=== PATIENT | female | born 1970 | race Caucasian/White ===

== ENCOUNTER 2017-01-26 10:49 | Emergency (ER) | payer OTHER ==
[2017-01-26] MEDS ORDERED: MAALOX/LIDO/HYOSC GI COCKTAIL 55 ML BOTTLE PO ONE (11:25)
[2017-01-26 11:26] VITALS: BP 157/92; PULSE 83; RESP 18; TEMP 98.6; O2SAT 96
[2017-01-26] MEDS ORDERED: MAALOX/HYOSC GI COCKTAIL 45 ML BOTTLE PO ONE (11:26)
--- NOTE | 2017-01-26 11:32 | UCPHY ---
H & P Patient Type: New Chief Complaint Nursing Narrative: mid abd pain started 1 week ago, now with constant abd tightness with radiation inbetween shoulder blades. denies n/v/d, denies urinary complaints, reports last bowel movement yesterday and normal. thought was indigestion but now constant pain Time Seen by Provider: 01/26/17 11:12 HPI/ROS: This patient reports gradual onset of epigastric pain 1 week ago that is described as crampy and achy in nature. It has been fairly constant since its onset and worsened when she drink wine. She had partial improvement from over- the-counter antacid notes no other exacerbating factors. She reports that the pain also seems to cause some discomfort between her shoulder blades. She does not recall ever having had this pain before. Peak intensity 7/10. She has no other associated symptoms. ROS: No fevers or chills. HEENT: No complaints pulmonary: No dyspnea. No coughing. No pleuritic pain. Cardiovascular: No leg swelling. GI: No nausea vomiting. She maintains a good appetite. She has noticed any significant reflux symptoms. : No symptoms. 10 point ROS is otherwise negative. Source: Patient Exam Limitations: No limitations - Medical/Surgical History PMH: Otherwise healthy except for uterine fibroids Past surgical history of tubal ligation Other PMH: uterine fibroids, BTL - Family History Significant Family History: No pertinent family hx - Social History Smoking Status: Never smoked Alcohol Use: Occasionally Drug Use: None Additional Social History: She is visiting from [place] and flew here within the past 24 hours - Physical Exam Exam: General Appearance: Alert, no distress. Eyes: Pupils equal and round no pallor or injection. ENT, Mouth: Mucous membranes moist. Respiratory: There are no retractions, lungs are clear to auscultation. Cardiovascular: Regular rate and rhythm. Gastrointestinal: Hyperactive bowel sounds, soft, mild right lower quadrant tenderness and mild epigastric tenderness. No guarding or rebound. Back: She has mild thoracic back tenderness that seems to be muscular. No midline tenderness. No CVA tenderness Neurological: Alert with no focal deficits. Skin: Warm and dry, no rashes. Musculoskeletal: Neck is supple nontender. Extremities are symmetrical, full range of motion. Psychiatric: Mood and affect are normal DIFFERENTIAL DIAGNOSIS: After history and physical exam differential diagnosis was considered for constipation, food intolerance, IBS, pancreatitis, coronary syndrome, hepatitis, appendicitis, UTI Constitutional: Initial Vital Signs Temperature (C) 37.0 C 01/26/17 11:04 Heart Rate 83 01/26/17 11:04 Respiratory Rate 18 01/26/17 11:04 Blood Pressure 157/92 H 01/26/17 11:04 O2 Sat (%) 96 01/26/17 11:04 O2 Delivery Mode Room Air Allergies/Adverse Reactions: No Known Allergies Allergy (Unverified 01/26/17 11:03) Home Medications: Medication Instructions Recorded Pantoprazole Sodium [Protonix 40mg 40 mg PO DAILY #20 tab 01/26/17 (*)] Medical Decision Making - Diagnostics EKG Interpretation: 12 lead EKG performed at 11:35 a.m. reveals sinus rhythm at 78 Intervals: Normal throughout [place]: Normal throughout ST segments: Normal throughout Overall assessment: Normal EKG ED Course/Re-evaluation: GI cocktail with improvement from 7/10 to 2/10 discomfort. Review of labs reveals normal CBC, comp metabolic panel and lipase. After workup, patient's findings are most consistent with gastritis potential reflux. I counseled her regarding this. - Data Points Laboratory Results: Laboratory Results 01/26/17 11:30 01/26/17 11:30 01/26/17 01/26/17 01/26/17 12:25 11:30 11:30 WBC 6.62 10^3/uL 10^3/uL (3.80-9.50) RBC 4.34 10^6/uL 10^6/uL (4.18-5.33) Hgb 12.8 g/dL g/dL (12.6-16.3) Hct 38.1 % % (38.0-47.0) MCV 87.8 fL fL (81.5-99.8) MCH 29.5 pg pg (27.9-34.1) MCHC 33.6 g/dL g/dL (32.4-36.7) RDW 13.1 % % (11.5-15.2) Plt Count 258 10^3/uL 10^3/uL (150-400) MPV 10.8 fL fL (8.7-11.7) Neut % (Auto) 63.4 % % (39.3-74.2) Lymph % (Auto) 25.8 % % (15.0-45.0) [place] % (Auto) 6.6 % % (4.5-13.0) Eos % (Auto) 3.0 % % (0.6-7.6) Baso % (Auto) 0.9 % % (0.3-1.7) Nucleat RBC Rel Count 0.0 % % (0.0-0.2) Absolute Neuts (auto) 4.19 10^3/uL 10^3/uL (1.70-6.50) Absolute Lymphs (auto) 1.71 10^3/uL 10^3/uL (1.00-3.00) Absolute Monos (auto) 0.44 10^3/uL 10^3/uL (0.30-0.80) Absolute Eos (auto) 0.20 10^3/uL 10^3/uL (0.03-0.40) Absolute Basos (auto) 0.06 10^3/uL 10^3/uL (0.02-0.10) Absolute Nucleated RBC 0.00 10^3/uL 10^3/uL (0-0.01) Immature Gran % 0.3 % % (0.0-1.1) Immature Gran # 0.02 10^3/uL 10^3/uL (0.00-0.10) Sodium 139 mEq/L mEq/L (134-144) Potassium 3.6 mEq/L mEq/L (3.5-5.2) Chloride 103 mEq/L mEq/L (97-110) Carbon Dioxide 24 mEq/l mEq/l (22-31) Anion Gap 12 mEq/L mEq/L (8-16) BUN 9 mg/dL mg/dL (7-23) Creatinine 0.6 mg/dL mg/dL (0.6-1.0) Estimated GFR > 60 Glucose 90 mg/dL mg/dL (70-100) Calcium 9.1 mg/dL mg/dL (8.5-10.4) Total Bilirubin 0.5 mg/dL mg/dL (0.1-1.4) AST 17 IU/L IU/L (14-46) ALT 23 IU/L IU/L (9-52) Alkaline Phosphatase 69 IU/L IU/L (38-126) Total Protein 7.7 g/dL g/dL (6.3-8.2) Albumin 4.2 g/dL g/dL (3.5-5.0) Lipase 91.0 IU/L IU/L (23-300) Urine Color YELLOW Urine Appearance CLEAR Urine pH 7.0 (5.0-7.5) Ur Specific [place] 1.010 (1.002-1.030) Urine Protein NEGATIVE (NEGATIVE) Urine Ketones NEGATIVE (NEGATIVE) Urine Blood 3+ H (NEGATIVE) Urine Nitrate NEGATIVE (NEGATIVE) Urine Bilirubin NEGATIVE (NEGATIVE) Urine Urobilinogen 0.2 EU EU (0.2-1.0) Ur Leukocyte Esterase NEGATIVE (NEGATIVE) Urine Glucose NEGATIVE (NEGATIVE) Medications Given: Discontinued Medications Miscellaneous Medication (Gi Cocktail) 55 ml PO EDNOW ONE Stop: 01/26/17 11:26 Last Admin: 01/26/17 11:43 Dose: Not Given Miscellaneous Medication (Gi Cocktail(No [place]ido)) 45 ml PO EDNOW ONE Stop: 01/26/17 11:27 Last Admin: 01/26/17 11:35 Dose: 45 ml Departure - Departure Disposition: Home, Routine, Self-Care Clinical Impression: GERD (gastroesophageal reflux disease) Qualifiers: Esophagitis presence: esophagitis presence not specified Qualified Code(s): K21.9 - Gastro-esophageal reflux disease without esophagitis Gastritis Qualifiers: Gastritis type: other gastritis Chronicity: acute Gastritis bleeding: without bleeding Qualified Code(s): K29.00 - Acute gastritis without bleeding Condition: Good Instructions: Gastritis (ED), Diet for Stomach Ulcers and Gastritis (ED) Additional Instructions: Diagnosis: GERD and gastritis Your EKG and labs are normal today. Plan: [place] diet until your symptoms improve Hold on alcohol until symptoms improve Protonix acid ramakrishna Maalox in addition as needed For constipation-consider stool softener such as Colace available over-the- counter. Return for any significant worsening despite treatment plan. Referrals: NONE *PRIMARY CARE P,. [Primary Care Provider] - As per Instructions Prescriptions: Pantoprazole Sodium [Protonix 40mg (*)] 40 mg PO DAILY #20 tab - PQRS PQRS Measurement: NA
--- NOTE | 2017-01-26 11:36 | CPEKG ---
Heart Rate: 78 RR Interval: 769 P-R Interval: 124 QRSD Interval: 90 QT Interval: 392 QTC Interval: 447 P [place]: 53 QRS [place]: 51 T Wave [place]: 22 EKG Severity - NORMAL ECG - EKG Impression: SINUS RHYTHM Electronically Signed By: Sukumar Lundy 26-Jan-2017 11:52:28
[2017-01-26 11:42] LABS: % IMMATURE GRANULYOCYTES 0.3 % (0.0-1.1); ABSOLUTE IMMATURE GRANULOCYTES 0.02 10^3/uL (0.00-0.10); ADD DIFF? NO; ADD MORPH? NO; ADD SCAN? NO; ATYPICAL LYMPHOCYTE FLAG 10 (0-99); FRAGMENT RBC FLAG 0 (0-99); HEMATOCRIT 38.1 % (38.0-47.0); HEMOGLOBIN 12.8 g/dL (12.6-16.3); LEFT SHIFT FLG 0 (0-99); LIPEMIA HEMOLYSIS FLAG 80 (0-99); MEAN CELL HEMOGLOBIN 29.5 pg (27.9-34.1); MEAN CELL HEMOGLOBIN CONCENTR. 33.6 g/dL (32.4-36.7); MEAN CELL VOLUME 87.8 fL (81.5-99.8); MEAN PLATELET VOLUME 10.8 fL (8.7-11.7); PLATELET CLUMPS FLAG 10 (0-99); PLATELET COUNT 258 10^3/uL (150-400); RED BLOOD CELL COUNT 4.34 10^6/uL (4.18-5.33); RED CELL DISTRIBUTION WIDTH 13.1 % (11.5-15.2)
[2017-01-26 12:02] LABS: ALANINE AMINOTRANSFERASE 23 IU/L (9-52); ALBUMIN 4.2 g/dL (3.5-5.0); ALKALINE PHOSPHATASE 69 IU/L (38-126); ANION GAP 12 mEq/L (8-16); ASPARTATE AMINOTRANSFERASE 17 IU/L (14-46); BILIRUBIN,TOTAL 0.5 mg/dL (0.1-1.4); CALCIUM 9.1 mg/dL (8.5-10.4); CARBON DIOXIDE 24 mEq/l (22-31); CHLORIDE 103 mEq/L (97-110); CREATININE 0.6 mg/dL (0.6-1.0); GLOMERULAR FILTRATION RATE > 60; GLUCOSE 90 mg/dL (70-100); POTASSIUM 3.6 mEq/L (3.5-5.2); SODIUM 139 mEq/L (134-144); TOTAL PROTEIN 7.7 g/dL (6.3-8.2)
[2017-01-26 12:37] LABS: COLOR YELLOW; LEUKOCYTE ESTERASE,URINE NEGATIVE (NEGATIVE); NITRITE,URINE NEGATIVE (NEGATIVE)
[2017-01-26 13:07] LABS: RBC,URINE 50-182 /hpf (0-3)
[2017-01-26 13:08] LABS: BACTERIA TRACE /hpf (NONE SEEN); MUCUS 2+ /lpf (NONE-1+); YEAST OCCASIONAL /hpf (NONE SEEN)
== END 2017-01-26 12:57 | disposition home or self-care (01) ==
LOC: CED 10:49
DX: K21.9 Gastro-esophageal reflux disease without esophagitis (principal); K29.00 Acute gastritis without bleeding
CPT/HCPCS: 80053-PO; 81003-PO; 81015-PO; 83690-PO; 85025-PO; 93010-PO; 99204-PO; G0463-PO